=== PATIENT | male | born 1955 | race Caucasian/White ===

== ENCOUNTER → 2022-07-25 | Outpatient (CLI) | payer MEDICARE ==
--- NOTE | 2022-07-26 10:18 | NM ---
EXAMINATION TYPE: NM stress cardiolite complete DATE OF EXAM: 07/25/2022 COMPARISON: NONE HISTORY: 66-year-old male Z01.810, preprocedural exam. Patient with history of hypertension, diabetes , high cholesterol. 20 pack-year history of smoking, quit 20 years ago. TECHNIQUE: After the intravenous administration of 9.8 mCi Tc 99m Sestamibi - Rest images obtained 7 5 minutes post injection. The patient exercised using a ANAI protocol and 1 minute prior to peak e xercise was injected with 25.8 mCi Tc 99m Sestamibi - Stress images obtained 20 minutes post injectio n. FINDINGS: Targeted heart rate (130 BPM) was achieved during performance of the study. 141 BPM was achieved tota l exercise time 7 minutes. Review of stress and rest SPECT images demonstrates fixed defect along the inferior wall that is more pronounced on rest suggesting prominent diaphragmatic attenuation artifac t. No distinct perfusion abnormality. Gated analysis shows normal wall motion with an estimated left ventricular ejection fraction of 70 %. TID is calculated at 0.87, within normal limits. IMPRESSION: 1. Large area of fixed defect along the inferior wall. As the defect is larger on rest, we favor prom inent diaphragmatic attenuation artifact rather than old infarct. Clinically correlate. 2. No discrete reversibility is identified.
--- NOTE | 2022-07-26 12:52 | CA ---
Exercise Stress Test Report Name: Negrito Bah Exam Date: 07/25/2022 09:27 Exam Location: [facility] Stress Ht (in): 71 Wt (lb): 238 BSA: 2.27 Ordering Phys: Juan Chacon MD Referring Phys: Ines, Technologist: Bhanu Villeda Age: 66 Gender: M : 1955 Procedure CPT: Indications: Z01.810 preprocedural exam ICD-10 Codes: Patient History: Hypertension and pre op Medications: Meds past 24 hrs: Pretest Chest Pain: STRESS TEST Mitul Protocol Exercise Duration (min:sec): 07:[address] Depressions (mm): Angina Score: Angulo Score: Resting HR (bpm): 75 Peak HR (bpm): 141 Resting BP (mmHg): 132 / 85 Peak BP (mmHg): 174 / 72 MPHR: 153 Target HR: 130 % MPHR: 92 METS: 8.6 Total Dose: Peak Dose: Atropine: Double Product: 82334 BP Response: Stress Termination: Reached target heart rate Stress Symptoms: No chest pain or symptoms Stress Summary: ECG ANALYSIS Resting ECG: Stress ECG: CONCLUSIONS Patient underwent exercise stress EKG with a Mitul protocol treadmill stress test. Patient exercised into Stage 2 for a total of 7 minutes reaching a total of 8.6 METS. Patient's maximum heart rate was 141 which represented 92 % age-predicted maximum heart rate. Stress EKG findings: At baseline patient's EKG showed normal sinus rhythm, normal axis, no significant ST or T wave abnormalities. At peak exercise, EKG showed no significant change from baseline. Conclusions: 1. Normal EKG response to exercise without evidence of inducible ischemia. 2. Fair exercise capacity. Dr. Sunday Werner DO (Electronically Signed) Final Date: 26 July 2022 12:51
== END | disposition home or self-care (01) ==
LOC: RADNMMAIN 07:55
PROVIDERS: ATTEND Internal Medicine
DX: Z01.810 Encounter for preprocedural cardiovascular examination (principal); I10 Essential (primary) hypertension; E11.9 Type 2 diabetes mellitus without complications; Z87.891 Personal history of nicotine dependence
CPT/HCPCS: 93017; 78452; A9500

== ENCOUNTER → 2022-08-19 | Outpatient (CLI) | payer MEDICARE ==
[2022-08-19 15:29] LABS: Basophils # (A) 0.06 X 10*3/uL (0.00-0.10); Basophils % (A) 0.9 %; Eosinophils # (A) 0.23 X 10*3/uL (0.04-0.35); Eosinophils % (A) 3.5 %; HCT 50.3 % (39.6-50.0); HGB 16.6 g/dL (13.0-17.0); Immature Grans, Automated 0.3 %; Lymphocytes # (A) 2.12 X 10*3/uL (0.90-5.00); Lymphocytes % (A) 32.7 %; MCH 29.6 pg (27.0-32.0); MCV 89.7 fL (80.0-97.0); Mean Platelet Volume 10.9 fL (9.5-12.2); Monocytes # (A) 0.46 X 10*3/uL (0.20-1.00); Monocytes % (A) 7.1 %; NRBC Per 100 WBC 0 /100 WBCS (0.0-0.0); Neutrophils % (A) 55.5 %; Platelet Count 215 X 10*3/uL (140-440); RBC 5.61 X 10*6/uL (4.40-5.60); RDW 13.2 % (11.5-14.5); WBC 6.49 X 10*3/uL (4.50-10.00)
[2022-08-19 16:28] LABS: INR 0.96 (0.90-1.11); Prothrombin Time 10.6 sec (9.9-11.9)
[2022-08-19 16:51] LABS: African American GFR (CKD) 102.3 (60.0-200.0); Anion Gap 10.7 mmol/L (10.00-18.00); BUN/Creat Ratio 15.64 Ratio (12.00-20.00); Calcium 9.6 mg/dL (8.7-10.3); Non-African American GFR(CKD) 88.3 (60.0-200.0); Potassium 4.6 mmol/L (3.5-5.5)
== END | disposition home or self-care (01) ==
LOC: LABPAT 08:08
PROVIDERS: ATTEND Orthopaedic Surgery
DX: Z01.812 Encounter for preprocedural laboratory examination (principal); Z22.322 Carrier or suspected carrier of Methicillin resistant Staphylococcus aureus; M17.12 Unilateral primary osteoarthritis, left knee
CPT/HCPCS: 36415; 80048; 85025; 85610; 87070

== ENCOUNTER 2022-09-02 08:14 | Day surgery (SDC) | payer MEDICARE ==
[2022-08-27 15:56] VITALS: BMI 32.8
--- NOTE | 2022-09-01 23:32 | HP ---
HISTORY AND PHYSICAL DATE OF SURGERY: 09/02/2022. HISTORY OF PRESENT ILLNESS: Negrito Bah is a 66-year-old patient seen with symptomatic left knee osteoarthritis. We discussed options for treatment. He elected to proceed with left total knee arthroplasty. Consent obtained. Medical clearance was provided by Dr. Chacon. PAST MEDICAL HISTORY: Hyperlipidemia, nsa-euqysrr-[id number] diabetes. PAST SURGICAL HISTORY: Umbilical herniorrhaphy. DAILY MEDICATIONS: 1. Rosuvastatin. 2. Metformin. 3. Glimepiride. 4. Aspirin. ALLERGIES: None. SOCIAL HISTORY: Denies tobacco use. PHYSICAL EVALUATION OF THE LEFT KNEE: His range of motion is -2/3-120. Mild effusion. Tenderness medial joint line. Crepitus, medial patellofemoral compartments with range of motion. Some pain with patellofemoral compression. Ligaments stable. Hip rotation without pain. Distal neurovascular exam is intact. RADIOGRAPHS: Left knee reveal severe osteoarthritic changes. IMPRESSION: 1. Left knee osteoarthritis. 2. Hypertension. 3. [id number] diabetes. PLAN: Left total knee arthroplasty. MMODL / IJN: [id number] /
[~2022-09-02 08:14] MED LIST: ACETAMINOPHEN TAB 500 MG TAB PO PRN; DEXAMETHASONE SOD PHOSPHATE 4 MG/ML 1 ML VIAL IV ONE; HYDROmorphone 0.5 MG/0.5 ML SYRINGE IVP PRN; LIDOCAINE 1% (10MG/ML) FOR IV START INTRADERMA PRN; MELOXICAM 7.5 MG TAB PO PRN; MIDAZOLAM 2 MG/2 ML VIAL IV PRN; ONDANSETRON 4 MG/2 ML VIAL IVP ONE; TRANEXAMIC ACID IN NACL,ISO-OS 1,000 MG in SALINE 1 100ML.BAG IVPB PRN
[2022-09-02 08:53] LABS: Glucose,Whole Blood 150 mg/dL (70-110)
[2022-09-02] MEDS: LACTATED RINGERS 1,000 ML IV SCH ×3 (09:02→15:55)
[2022-09-02] MEDS ORDERED: MIDAZOLAM 2 MG/2 ML VIAL IVP ONE (09:19)
[2022-09-02 09:59] LABS: Glucose,Whole Blood 145 mg/dL (70-110)
[2022-09-02] MEDS ORDERED: SODIUM CHLORIDE 0.9% (PF) 10 ML VIAL ONE (10:00)
[2022-09-02] MEDS ORDERED: KETAMINE 10 MG/ML 20 ML VIAL ONE (10:00)
[2022-09-02] MEDS ORDERED: ROPIVACAINE 5 MG/ML 30 ML VIAL ONE (10:00)
[2022-09-02] MEDS ORDERED: DEXAMETHASONE SOD PHOSPHATE 4 MG/ML 1 ML VIAL ONE (10:00)
[2022-09-02] MEDS ORDERED: PROPOFOL 10 MG/ML 20 ML VIAL IV ONE (10:00)
[2022-09-02] MEDS ORDERED: TRANEXAMIC ACID IN NACL,ISO-OS 1,000 MG/100 ML BAG ONE (10:00)
[2022-09-02] MEDS ORDERED: PHENYLEPHRINE-0.9% NACL SYG 1,000 MCG/10 ML SYRINGE ONE (10:00)
[2022-09-02] MEDS ORDERED: MIDAZOLAM 2 MG/2 ML VIAL ONE (10:00)
[2022-09-02] MEDS ORDERED: fentaNYL (PF) 50 MCG/ML 2 ML AMP ONE (10:00)
--- NOTE | 2022-09-02 10:04 | P.ANPRN ---
Procedure Note - Anesthesia - Nerve Block Performed Left Adductor Canal Infusion Time Out Performed: Yes Date of Procedure: 09/02/22 Procedure Start Time: : Procedure Stop Time: : Location of Patient: PreOp Indication: Requested by Surgeon Specifically requested for management of pain by DrBradley: Marcos Olivares Sedation Type: Sedate with meaningful contact maintained Preparation: Sterile Prep, Sterile Dressing Position: Supine Catheter: Indwelling Needle Types: Pajunk Needle Gauge: 18 Ultrasound used to visualize needle placement: Yes Ultrasound used to observe medication spread: Yes Injectate: 0.5% Ropivacaine (see comment for volume) (15 ml +10 ml NS PF) Blood Aspirated: No Pain Paresthesia on Injection Noted: No Resistance on Injection: Normal Image Stored and Saved: Yes Events: Uneventful and Well Tolerated
[2022-09-02] MEDS ORDERED: ROPIVACAINE 0.2%-NS ON-Q PUMP 1,090 MG, EMPTY PAIN BALL 1 EACH MISCELLANE PRN (10:05)
--- NOTE | 2022-09-02 10:05 | P.ANPRN ---
Procedure Note - Anesthesia - Nerve Block Performed Left iPack Single Time Out Performed: Yes Date of Procedure: 09/02/22 Procedure Start Time: : Procedure Stop Time: :35 Location of Patient: PreOp Indication: Requested by Surgeon Specifically requested for management of pain by DrBradley: Marcos Olivares Sedation Type: Sedate with meaningful contact maintained Preparation: Sterile Prep Position: Right Lateral Needle Types: Pajunk Needle Gauge: 21 Ultrasound used to visualize needle placement: Yes Ultrasound used to observe medication spread: Yes Injectate: 0.5% Ropivacaine (see comment for volume) (15 ml +10 ml NS PF +4 mg Dexamethasone) Blood Aspirated: No Pain Paresthesia on Injection Noted: No Resistance on Injection: Normal Image Stored and Saved: Yes Events: Uneventful and Well Tolerated
[2022-09-02] MEDS ORDERED: ceFAZolin 1,000 MG in SODIUM CHLORIDE 0.9% 1,000 ML IRRIGATION ONE (10:33)
[2022-09-02] MEDS ORDERED: LACTATED RINGERS 1,000 ML IV ONE (11:33)
[2022-09-02] MEDS ORDERED: NALOXONE 0.4 MG/ML 1 ML VIAL IV PRN (11:52)
[2022-09-02] MEDS ORDERED: HYDROmorphone 0.5 MG/0.5 ML SYRINGE IVP PRN ×3 (11:52)
[2022-09-02] MEDS ORDERED: ONDANSETRON 4 MG/2 ML VIAL IVP PRN (11:52)
[2022-09-02] MEDS ORDERED: HYDROcodone/APAP 7.5-325MG 1 EACH TAB PO PRN (11:52)
--- NOTE | 2022-09-02 11:52 | P.OP ---
Date of Procedure: 09/02/22 Preoperative Diagnosis: Left knee osteoarthritis Postoperative Diagnosis: Left knee osteoarthritis Procedure(s) Performed: Left total knee arthroplasty Implants: 1. Depuy attune size 7 left cruciate retaining cemented femur 2. Depuy attune size 7 fixed bearing cemented tibial baseplate 3. Ayden attune size 7 fixed bearing cruciate retaining 12 mm polyethylene tibial insert 4. Ayden attune 38 mm all polyethylene cemented patella Anesthesia: regional (Adductor canal catheter, Ipack block), spinal Surgeon: Marcos Olivares Milk Hauler #1: Dom Manning Estimated Blood Loss (ml): 40 Pathology: other (Bone) Condition: stable Disposition: PACU Indications for Procedure: 66-year-old patient seen with symptomatic left knee osteoarthritis. After treatment options were discussed, he elected to proceed with total knee arthropl asty. Operative Findings: See description of procedure Description of Procedure: Patient was taken to the operative suite after having an adductor canal catheter placed by the department of anesthesia. Patient underwent a spinal anesthetic by the department of anesthesia. Patient was given preoperative IV intake antibiotics and TXA. A well-padded tourniquet was placed about the left lower extremity. The lower extremity was then prepped and draped in the normal sterile orthopedic fashion. The extremity was elevated, a tourniquet was insuf flated to 300. A standard anterior incision was made sharply through skin. Dissection was taken down through the subcutaneous soft tissues down to the extensor mechanism. A medial arthrotomy was performed, patella was everted and knee was flexed. There was advanced osteoarthritis noted. I introduced my distal intramedullary femoral drill. I then introduced the distal femoral cutting jig. Dom SALINAS secured the cutting jig with 2 pins. I held retractors in position while Dom SALINAS performed the distal femoral resection through the guide area we now removed her distal femoral cutting guide. We now placed our 4-in-1 femoral cutting block and positioned and it was secured with 2 pins by Dom SALINAS while I held the block in position. The distal femoral finishing was now completed. A proximal tibial cutting guide was positioned. I held the guide in the appropriate position with both hands while Dom SALINAS inserted stabilizing pins into the guide. Proximal tibial cut was made. We now placed a trial femoral component into position, along with an appropriate size tibial tray and insert. We now took the knee through range of motion and had full extension good flexion and good overall soft tissue balance noted. The patella was everted and stabilized with 2 towel clips held by Dom SALINAS while I performed a flush with patellar quad tendon utilizing a fresh sawblade. We templated the patella, appropriate drill holes were made. An appropriate trial patella was positioned, knee was taken through full range of motion with the patella tracking very nicely. The trial patella was removed. Drill holes were made through the femoral component. All trial components were removed after marking off the appropriate rotation of the tibia. Retractors were now positioned along the proximal tibia. An appropriate keel punch was made with the appropriate size tibial guide by myself on Dom SALINAS assisted by holding retractors. At this point appropriate size implants were chosen and opened. The joint was irrigated copiously with pulse lavage mechanical irrigation. The posterior capsule was infiltrated with local analgesic. The wound was irrigated with pulse lavage mechanical irrigation. We mixed antibiotic methylmethacrylate. We placed the knee into flexion. We placed multiple retractors assisted by Dom SALINAS to expose the proximal tibia. Once the methyl methacrylate was ready, the tibial component was cemented into place removing any excess methylmethacrylate form by both myself and Dom SALINAS. The femoral component was cemented into place removing the removing any excess methylmethacrylate performed by both myself and Dom SALINAS. We then inserted the appropriate size polyethylene tibial insert. We made sure that it was locked into position. We took the knee into full extension, and then back in a flexion making sure we had removed any excess methylmethacrylate. The patellar component was then cemented down and secured with clamp. Excess methylmethacrylate removed. We kept the knee in full extension, patellar clamp in position until methylmethacrylate had hardened. Once it had hardened the patellar clamp was removed. The knee was taken through full range of motion. The patella tracked nicely. There was good soft tissue balancing. The tourniquet was now released. Additional hemostasis was achieved via electrocautery. A second gram of TXA was given. The wound again was irrigated with pulse lavage mechanical irrigation. The extensor mechanism was repaired with Ethibond suture. We checked the repair with range of motion and it was stable. The subcutaneous soft tissues were repaired with Vicryl in layers. The skin was approximated with pernio/Dermabond. Sterile dressings were applied followed by loose web roll and Les bandage. The patient was transferred to a bed, and taken to recovery in stable and satisfactory condition. Dom SALINAS assisted with this complex procedure.
--- NOTE | 2022-09-02 14:34 | XR ---
EXAMINATION TYPE: XR knee limited LT DATE OF EXAM: 09/02/2022 2:05 PM INDICATION: Patient age:Male; 66 years old; Reason for study: Evaluation for Postop abnormality and alignment; COMPARISON: None. TECHNIQUE: The Left knee(s) was examined in Frontal, lateral and oblique projections. FINDINGS: Status post left total knee arthroplasty changes with hardware in appropriate alignment a nd intact. No evidence of fracture. Subcutaneous lucencies and lucencies within the joint consistent with surgical changes. IMPRESSION: Status post total knee arthroplasty changes with hardware intact and appropriate alignment. No fractu res identified.
[2022-09-02 17:06] VITALS: RESP 18
[2022-09-02] MEDS ORDERED: LORATADINE 10 MG TAB PO SCH (19:00)
[2022-09-02 19:16] LABS: Glucose,Whole Blood 244 mg/dL (70-110)
[2022-09-02] MEDS ORDERED: SENNOSIDES-DOCUSATE SODIUM 1 EACH TAB PO SCH (21:00)
[2022-09-02] MEDS ORDERED: ATORVASTATIN 20 MG TAB PO SCH (21:00)
[2022-09-02] MEDS: metFORMIN 500 MG TAB PO SCH (21:52)
[2022-09-02] MEDS: ENOXAPARIN 30 MG/0.3 ML SYRINGE SQ SCH (21:52)
[2022-09-03] MEDS: LACTATED RINGERS 1,000 ML IV SCH ×3 (01:10→09:47)
[2022-09-03] MEDS: HYDROcodone/APAP 5-325MG 1 EACH TAB PO PRN ×2 (05:32→12:09)
[2022-09-03 06:25] LABS: Glucose,Whole Blood 160 mg/dL (70-110)
[2022-09-03] MEDS: metFORMIN 500 MG TAB PO SCH (07:22)
[2022-09-03] MEDS: ENOXAPARIN 30 MG/0.3 ML SYRINGE SQ SCH (07:23)
[2022-09-03] MEDS ORDERED: DAPAGLIFLOZIN PROPANEDIOL 10 MG TABLET PO SCH (07:30)
[2022-09-03] MEDS ORDERED: PANTOPRAZOLE 40 MG TABLET PO SCH (07:30)
[2022-09-03] MEDS ORDERED: GLIMEPIRIDE 4 MG TAB PO SCH (07:30)
[2022-09-03 07:32] VITALS: BP 137/79; PULSE 90; TEMP 98.4
--- NOTE | 2022-09-03 07:55 | P.PN ---
Progress Note - Text Progress Note Date: 09/03/22 Postoperative day # 1 status post total knee arthroplasty, and adductor canal catheter placed for postoperative analgesia, currently at ropivacaine 0.2% 8 mL per hour and continuous infusion, visual analogue scale is 3-4/10, patient using oral pain medication for breakthrough pain. Assessment and plan= Acute postoperative pain, adductor canal catheter for pain control, pain is well controlled we'll continue the same management. note= patient was seen at 06:55
[2022-09-03] MEDS ORDERED: MULTIVITAMINS, THERA 1 EACH TAB PO SCH ×2 (09:00→12:00)
[2022-09-03] MEDS ORDERED: LOSARTAN 50 MG TAB PO SCH (09:00)
[2022-09-03] MEDS ORDERED: ASPIRIN 81 MG PO SCH (09:00)
[2022-09-03 09:43] LABS: HCT 47.2 % (39.6-50.0); HGB 15.7 g/dL (13.0-17.0); MCH 29.2 pg (27.0-32.0); MCHC 33.3 g/dL (32.0-37.0); MCV 87.9 fL (80.0-97.0); Mean Platelet Volume 11.1 fL (9.5-12.2); NRBC Per 100 WBC 0 /100 WBCS (0.0-0.0); Platelet Count 253 X 10*3/uL (140-440); RBC 5.37 X 10*6/uL (4.40-5.60); RDW 13.3 % (11.5-14.5); WBC 14.08 X 10*3/uL (4.50-10.00)
--- NOTE | 2022-09-03 11:14 | P.PN ---
Subjective Progress Note Date: 09/03/22 Principal diagnosis: Status post left total knee arthroplasty Patient evaluated at bedside, he is resting his hospital chair. He's been ambulating very well with use of his walker. He was able to work with physical therapy this morning with no difficulty. He has been urinating, there initially was difficult with this earlier yesterday but he is having no issues now. Denies headaches, lightheadedness, shortness of breath, chest pain. Objective - Vital Signs Vital signs: Vital Signs Temp 98.4 F 09/03/22 07:31 Pulse 90 09/03/22 07:31 Resp 18 09/03/22 07:31 BP 137/79 09/03/22 07:31 Pulse Ox 96 09/03/22 07:31 FiO2 Intake & Output 09/02/22 09/03/22 09/03/22 18:59 06:59 18:59 Intake Total 2050 1150 Output Total 40 2850 Balance 2010 -1699 Weight 107.4 kg Intake: IV 2050 Intake, IV Titration 1150 Amount Lactated Ringers 1,000 ml 1100 @ 100 mls/hr IV .Q10H CHAN Rx#:[id number] ceFAZolin 2 gm In Sodium 50 Chloride 0.9% 50 ml @ 100 mls/hr IVPB Q8H CHAN Rx#: [id number] Output: Urine 2850 Estimated Blood Loss 40 Other: Voiding Method Urinal # Voids 1 - Exam Left lower extremity: Incision is clean, dry, and intact. The exofin fusion tape is in good condition. There is minimal soft tissue swelling and ecchymosis surrounding the medial and lateral aspects of the incision. Calf is soft, no tenderness with palpation. Plantar flexion, dorsiflexion, EHL, FHL are intact. Sensory exam to light touch throughout the extremity is intact, dorsal pedis pulses 2+. - Labs CBC & Chem 7: 09/03/22 05:24 Labs: Abnormal Lab Results - Last 24 Hours (Table) 09/02/22 09/03/22 09/03/22 Range/Units 19:14 05:24 06:23 WBC 14.08 H (4.50-10.00) X 10*3/uL POC Glucose (mg/dL) 244 H 160 H (70-110) mg/dL Assessment and Plan Assessment: Postoperative day #1 status post left total knee arthroplasty Plan: Pain control, plan for discharge home on [place] 5 mg/325 mg DVT prophylaxis, aspirin 81 mg twice a day Wound care instructions discussed, this concluded icing and elevating along with showering Encourage incentive spirometer PT/OT at home once discharged Medical recommendations Discharge planning: Stable for discharge Time with Patient: Less than 30
--- NOTE | 2022-09-03 11:19 | P.DS ---
Providers Date of admission: 09/02/2022 Expected date of discharge: 09/03/22 Attending physician: Marcos Olivares Consults: 09/02/22 11:52 Consult Physician Routine Consulting Provider: Juan Chacon Consult Reason/Comments: Medical management Do you want consulting provider notified?: Yes Primary care physician: Juan Chacon Hospital Course: Date of admission: 09/02/2022 Date of discharge: 09/03/2022 Admission diagnosis: Status post left total knee arthroplasty Discharge diagnosis: Same Attending physician: Dr. Olivares Surgical procedures: Left total knee arthroplasty Brief history: Patient is a 66 male with a history of with progressive primary left knee osteoarthritis. At this point patient has failed conservative treatment measures and has opted to proceed with a elective left total knee arthroplasty. Hospital course: Details of patient's surgery can be found in operative report. Patient tolerated the procedure well and was subsequently transported to [facility] floor. Patient's orthopeidc and medical care was provided daily. Patient had daily laboratory tests performed for evaluation of overall blood counts. Patient had daily physical therapy to include strengthening range of motion as well as education with walker ambulation. Patient was treated with Lovenox for their postoperative DVT prophylaxis during their inpatient stay. Patient was noted to have a relatively uneventful postoperative course. Patient reported satisfactory pain control with oral pain medications by postoperative day 0. Patient showed satisfactory progress with physical therapy. Patient moved steadily through the program and had no difficulty meeting the goals by postoperative day 1. Given patient's otherwise satisfactory course and having met physical therapy goals, plan is to discharge patient home on postoperative day 1. Discharge condition/disposition: Patient will be discharged home in stable condition. Discharge medications: Instructions are given on resumption of patient's normal daily medications per primary care recommendation, in addition patient will be prescribed [place] 5 mg/325 mg. Discharge instructions: 1. Wound care and infection precautions, keep incision dry and covered while showering, no lotions, creams, moisturizers. No soaking, tubs, pools, hottubs. Do not scrub over the incision. 2. Weight-bear as tolerated with walker / cane until follow-up. 3. Ice and elevate when necessary. Do not exceed 20 minutes per hour with ice pack. 4. Utilize compression sleeve until seen at first follow up appointment. 5. Visiting nursing care. 6. Home physical therapy including home CPM. 7. Pain meds and anticoagulants per prescription. 8. Pain medication has potential to cause constipation. Increase oral fluid and fiber intake. Contact primary care provider if you have not had a bowel movement within 48 hours after discharge 9. No anti-inflammatory medication until discussed at first post operative visit, this including Motrin, Aleve, Mobic, Diclofenac 10. Follow up in office at 2 weeks postop with Desmond Myers PA-C/Dom Carrillo 11. Follow up with your primary care doctor 7-10 days after discharge. 12. Contact [facility] with any questions, . Procedures: Left total knee arthroplasty Patient Condition at Discharge: Good Plan - Discharge Summary Discharge Rx Participant: No New Discharge Prescriptions: New Aspirin [Adult Low Dose Aspirin EC] 81 mg PO BID #60 tab HYDROcodone/APAP 5-325MG [[place] 5-325] 1 tab PO Q4HR PRN #42 tab PRN Reason: Pain No Action Rosuvastatin [Crestor] 10 mg PO HS Empagliflozin [Jardiance] 25 mg PO AC-BRKFST Cetirizine HCl [Zyrtec] 10 mg PO 1900 Aspirin 81 mg PO DAILY metFORMIN HCL [Glucophage] 1,000 mg PO BID Losartan [Cozaar] 50 mg PO DAILY Lansoprazole [Prevacid] 30 mg PO DAILY Glimepiride [Amaryl] 4 mg PO AC-BRKFST Multivitamins, Thera [Multivitamin (formulary)] 1 tab PO DAILY Discharge Medication List Aspirin 81 mg PO DAILY 08/27/22 [History] Cetirizine HCl [Zyrtec] 10 mg PO 1900 08/27/22 [History] Empagliflozin [Jardiance] 25 mg PO AC-BRKFST 08/27/22 [History] Glimepiride [Amaryl] 4 mg PO AC-BRKFST 08/27/22 [History] Lansoprazole [Prevacid] 30 mg PO DAILY 08/27/22 [History] Losartan [Cozaar] 50 mg PO DAILY 08/27/22 [History] Multivitamins, Thera [Multivitamin (formulary)] 1 tab PO DAILY 08/27/22 [History] Rosuvastatin [Crestor] 10 mg PO HS 08/27/22 [History] metFORMIN HCL [Glucophage] 1,000 mg PO BID 08/27/22 [History] Aspirin [Adult Low Dose Aspirin EC] 81 mg PO BID #60 tab 09/03/22 [Rx] HYDROcodone/APAP 5-325MG [[place] 5-325] 1 tab PO Q4HR PRN #42 tab 09/03/22 [Rx] Follow up Appointment(s)/Referral(s): Juan Chacon MD [Primary Care Provider] - 1 Week [facility],Equipment [NON-STAFF] - As Needed (Call [facility] once home to arrange delivery of the Continuous Passive Motion (CPM) machine. ) [facility], [NON-STAFF] - 1-2 Days ([facility] will call you to schedule your in home nursing and physical therapy visits. ) Kvng Myers PAC [PHYSICIAN LOAD OUT PERSON] - 09/20/22 11:20 am Patient Instructions/Handouts: Knee Replacement (DC) Activity/Diet/Wound Care/Special Instructions: Orthopedic Discharge Instructions: 1. Wound care and infection precautions, keep incision dry and covered while showering, no lotions, creams, moisturizers. No soaking, pools, hot tubs. Do not scrub over incision. 2. Weight-bear as tolerated with walker / cane until follow-up. 3. Ice and elevate when necessary. Do not exceed 20 minutes per hour with ice pack. 4. Utilize compression sleeve until seen at first follow up appointment. 5. Pain meds and anticoagulants per prescription. 6. Pain medication has potential to cause constipation. Increase oral fluid and fiber intake. Contact primary care provider if you have not had a bowel movement within 48 hours after discharge. 7. No anti-inflammatory medication until discussed at first post operative visit, this including Motrin, Aleve, Mobic, Diclofenac. 8. Follow up in office at 2 weeks postop with Desmond Myers PA-C / Dom Manning PA-C 9. Follow up with your primary care doctor 7-10 days after discharge. 10. Contact [facility] with any questions, . Keep incision clean, dry, intact. While showering, cover silver foam dressing was Saran wrap. Silver foam dressing may removed on 09/09/2022. Once dressing is removed may shower directly over incision. Do not soak incision in pool/hot tub etc. Discharge Disposition: HOME WITH HOME HEALTH SERVICES
[2022-09-03 11:23] LABS: Glucose,Whole Blood 160 mg/dL (70-110)
[2022-09-03 11:32] LABS: Basophils # (A) 0.03 X 10*3/uL (0.00-0.10); Basophils % (A) 0.2 %; Eosinophils # (A) 0 X 10*3/uL (0.04-0.35); Eosinophils % (A) 0 %; Immature Grans, Automated 0.3 %; Lymphocytes # (A) 1.59 X 10*3/uL (0.90-5.00); Lymphocytes % (A) 11.3 %; Monocytes # (A) 1.63 X 10*3/uL (0.20-1.00); Monocytes % (A) 11.6 %; Neutrophils # (A) 10.79 X 10*3/uL (1.80-7.70); Neutrophils % (A) 76.6 %
== END 2022-09-03 13:00 | disposition home health service (06) ==
LOC: OR 08:14 → 4SSUR 15:50 → OR 09-03 13:00
PROVIDERS: ATTEND Orthopaedic Surgery
DX: M17.12 Unilateral primary osteoarthritis, left knee (principal); E78.5 Hyperlipidemia, unspecified; E11.9 Type 2 diabetes mellitus without complications; Z79.84 Long term (current) use of oral hypoglycemic drugs; G89.18 Other acute postprocedural pain; Z79.82 Long term (current) use of aspirin; Z79.899 Other long term (current) drug therapy; Z98.890 Other specified postprocedural states
CPT/HCPCS: 27447; 97161; 64999; 64448; 76942; 85025; 88300; 73560; C1776; C1713 ×2; C1751; J2250; J1100; J0690 ×3; J2405; J1650 ×2; J2795

== ENCOUNTER → 2022-09-10 | Outpatient (CLI) | payer MEDICARE ==
--- NOTE | 2022-09-10 10:57 | US ---
EXAMINATION TYPE: US venous doppler duplex LE LT DATE OF EXAM: 09/10/2022 10:39 AM COMPARISON: NONE CLINICAL HISTORY: M79.605 LT LEG PAIN. left total knee 1 week ago, bruising and swelling, no h/o dvt SIDE PERFORMED: Left TECHNIQUE: The lower extremity deep venous system is examined utilizing real time linear array sonog layla with graded compression, doppler sonography and color-flow sonography. VESSELS IMAGED: Common Femoral Vein Deep Femoral Vein Greater Saphenous Vein * Femoral Vein Popliteal Vein Small Saphenous Vein * Proximal Calf Veins (* superficial vessels) Left Leg: Negative for DVT Grayscale, color doppler, spectral doppler imaging performed of the deep veins of the left lower extr emity. There is normal flow, compressibility, vascular waveforms. IMPRESSION: No ultrasound evidence for acute DVT in the left lower extremity.
== END | disposition home or self-care (01) ==
LOC: RADUSWWP 10:18
PROVIDERS: ATTEND Internal Medicine
DX: M79.605 Pain in left leg (principal)

== ENCOUNTER → 2023-03-11 | Outpatient (CLI) | payer MEDICARE ==
--- NOTE | 2023-03-11 07:39 | MR ---
EXAMINATION TYPE: MR knee RT wo con DATE OF EXAM: 03/11/2023 COMPARISON: Right knee x-ray February 15, 2023 HISTORY: Right knee pain, twisting injury 4 weeks ago. TECHNIQUE: Multiplanar, multisequence images of the knee is performed without IV contrast. FINDINGS: MEDIAL MENISCUS: Medial extrusion of medial meniscus on coronal images with marked increase signal Tr uncated appearance medial meniscus with horizontal increased signal through the central body and post erior horn extending to articular surface. LATERAL MENISCUS: Anterior and posterior horns are intact without tear. CRUCIATE LIGAMENTS: The anterior and posterior cruciate ligaments are intact and unremarkable. COLLATERAL LIGAMENTS: The medial collateral ligament and lateral collateral ligament complex are inta ct. Mild fluid signal surrounds the medial collateral ligament. EXTENSOR MECHANISM: Visualized quadriceps and patellar tendons are intact. EFFUSION: Large size suprapatellar joint effusion. POPLITEAL CYST: No popliteal/pradhan cyst. TRICOMPARTMENT SPACES: Mild to moderate narrowing with mild spurring medial tibial femoral compartmen t. Mild narrowing and mild to moderate spurring lateral tibiofemoral compartment. Mild to moderate na rrowing patellofemoral compartment. CARTILAGE: Fissuring and cartilaginous loss medial tibiofemoral compartment. No significant chondroma lacia patella. BONE MARROW SIGNAL: No focal abnormal marrow signal is appreciated. OTHER: No additional significant abnormality is appreciated. IMPRESSION: 1. There is emaciated full thickness tear medial meniscus involving the posterior horn and central john dy. 2. There is large suprapatellar joint effusion. 2. Mild to moderate tricompartment degenerative changes as detailed above. 4. Mild MCL sprain injury.
== END | disposition home or self-care (01) ==
LOC: RADMRIMAIN 05:54
PROVIDERS: ATTEND Orthopaedic Surgery
DX: S83.241A Other tear of medial meniscus, current injury, right knee, initial encounter (principal); S83.411A Sprain of medial collateral ligament of right knee, initial encounter; M25.461 Effusion, right knee; M17.11 Unilateral primary osteoarthritis, right knee

== ENCOUNTER 2023-04-17 07:55 | Day surgery (SDC) | payer MEDICARE ==
[2023-04-09 15:13] VITALS: BMI 31.4
--- NOTE | 2023-04-16 20:15 | HP ---
HISTORY AND PHYSICAL DATE OF SURGERY: 04/17/2023. HISTORY OF PRESENT ILLNESS: Negrito Bah is a 67-year-old gentleman seen with progressive right knee pain. We discussed options for treatment. He elected to proceed with right knee arthroscopy. Consent was obtained. PAST MEDICAL HISTORY: Thm-gidtabk-cxfnaciby diabetes, hyperlipidemia. PAST SURGICAL HISTORY: Umbilical herniorrhaphy. DAILY MEDICATIONS: 1. Aspirin. 2. Loperamide. 3. Losartan. 4. Metformin. 5. Vitamins. ALLERGIES: None. SOCIAL HISTORY: Denies tobacco use. PHYSICAL EVALUATION OF THE RIGHT KNEE: His range of motion is -2/3 to 120 degrees. Mild effusion. Tenderness, medial joint line. Positive medial Kalyani's. +1 MCL. Good endpoint. Painless rotation of the hip. Distal neurovascular exam is intact. RADIOGRAPHS: Radiographs of the right knee revealed yecx-qc-qyrfvgow osteoarthritic changes. MRI of right knee revealed a large medial meniscal tear. Large effusion. Osteoarthritic changes. IMPRESSION: 1. Internal derangement of right knee with medial meniscal tear. 2. Hypertension. 3. Hyperlipidemia. 4. Tzx-nkbsqhn-tvdofwhuq diabetes. PLAN: Right knee arthroscopy with partial medial meniscectomy and debridement. MMODL / IJN: [id number] /
[2023-04-17] MEDS ORDERED: LACTATED RINGERS 1,000 ML IV SCH (08:08)
[2023-04-17] MEDS ORDERED: fentaNYL (PF) 50 MCG/ML 2 ML AMP IV PRN (08:08)
[2023-04-17] MEDS ORDERED: droPERidol 5 MG/2 ML VIAL IVP ONE (08:08)
[2023-04-17] MEDS ORDERED: DEXAMETHASONE SOD PHOSPHATE 4 MG/ML 1 ML VIAL IV ONE (08:08)
[2023-04-17] MEDS ORDERED: LIDOCAINE 1% (10MG/ML) FOR IV START INTRADERMA PRN (08:08)
[2023-04-17] MEDS ORDERED: ONDANSETRON 4 MG/2 ML VIAL IVP ONE (08:08)
[2023-04-17 08:36] LABS: Glucose,Whole Blood 145 mg/dL (70-110)
[2023-04-17] MEDS ORDERED: MIDAZOLAM 2 MG/2 ML VIAL ONE (09:22)
[2023-04-17] MEDS ORDERED: PROPOFOL 10 MG/ML 20 ML VIAL IV ONE (09:22)
[2023-04-17] MEDS ORDERED: fentaNYL (PF) 50 MCG/ML 2 ML AMP ONE (09:22)
[2023-04-17] MEDS ORDERED: KETOROLAC 15 MG/ML 1 ML VIAL ONE (09:22)
[2023-04-17] MEDS ORDERED: BUPIVACAINE (PF) 0.25% 30 ML VIAL SQ ONE ×2 (09:40→09:56)
--- NOTE | 2023-04-17 10:13 | P.OP ---
Date of Procedure: 04/17/23 Preoperative Diagnosis: Internal derangement right knee Postoperative Diagnosis: 1. Tear medial and lateral meniscus right knee 2. Grade 4 chondromalacia medial femoral condyle right knee 3. Reactive synovitis medial, lateral and suprapatellar compartments right knee Procedure(s) Performed: 1. Arthroscopic partial medial and lateral meniscectomy right knee 2. Arthroscopic microfracture medial femoral condyle right knee 3. Arthroscopic partial synovectomy medial, lateral and suprapatellar compartments right knee Anesthesia: NEDAA, local Surgeon: Marcos Olivares Estimated Blood Loss (ml): 8 Pathology: none sent Condition: stable Disposition: PACU Indications for Procedure: 67-year-old gentleman seen with progressive right knee pain. After having treatment options discussed, he elected to proceed with arthroscopy. Operative Findings: See description of procedure Description of Procedure: Patient was taken to the operative suite. Patient underwent a general anesthetic by the department of anesthesia. Patient was given preoperative antibiotics. The right lower extremity was placed in a well-padded arthroscopic leg woo. The right leg was prepped and draped in the normal sterile orthopedic fashion. A lateral parapatellar and suprapatellar incision was made. Trochars were inserted. Arthroscopy was initiated. Suprapatellar pouch revealed diffuse thick reactive synovitis. The patellofemoral joint appeared to articulate congruently. There was grade 2 chondromalacia of the patella without significant osteochondral tears. The scope was guided into the medial gutter. No loose bodies or plica were identified. The scope was then guided into the medial compartment. A medial parapatellar incision was made. Trocar inserted followed by probe. There was a complex tear involving the posterior horn medial meniscus which extended into the midbody area. There were grade 3/4 chondromalacia changes along the medial femoral condyle with some osteochondral flap tears present. There was some thick reactive synovitis anteriorly. I performed a partial medial meniscectomy getting down to stable meniscal tissue. I performed a chondroplasty of the medial femoral condyle getting down to stable osteochondral tissue. I performed a partial synovectomy decompressing the thick reactive synovitis. I noted areas of exposed bone medial femoral condyle measuring just under a centimeter along the weightbearing surface. I introduced a microfracture awl and I performed a microfracture to that area penetrating the bone with resultant leading at the microfracture site. The residual meniscus was found to be stable. The residual osteochondral surface was stable. There was good decompression of the synovitis. Scope and probe were then guided into the intercondylar notch. Cruciates were identified, probed and found to be stable. The scope and probe were then guided into lateral compartment. There was a radial tear mid body lateral meniscus. There was some thick reactive synovitis anteriorly. There was mild grade 1 chondromalacia of the lateral femoral condyle without tears. I performed a partial lateral meniscectomy getting down to stable meniscal tissue. I performed a partial synovectomy decompressing the reactive synovitis. The residual meniscus was found to be stable. There was good decompression of the synovitis. The scope was in guided back into the suprapatellar compartment. I introduced a motorized shaver into the suprapatellar compartment. I debrided Synthes for fragments of meniscus that I encountered. I performed a partial synovectomy. The shaver was now removed. There appeared be good decompression of the reactive synovitis. I now took one more look around the entire knee, no residual debris. Instruments were now removed from the joint. The joint was infiltrated with .25% Marcaine. Steri-Strips were applied to the portal sites. Sterile dressings were applied. The patient was placed into a NATASHA hose. No tourniquet was utilized. The patien t was awakened, transferred to a bed and taken to recovery stable satisfactory condition.
[2023-04-17 10:14] VITALS: RESP 16; TEMP 98
[2023-04-17 11:01] VITALS: BP 124/85; PULSE 86
== END 2023-04-17 11:18 | disposition home or self-care (01) ==
LOC: OR 07:55
PROVIDERS: ATTEND Orthopaedic Surgery
DX: S83.281A Other tear of lateral meniscus, current injury, right knee, initial encounter (principal); S83.241A Other tear of medial meniscus, current injury, right knee, initial encounter; M94.261 Chondromalacia, right knee; M65.861 Other synovitis and tenosynovitis, right lower leg; E11.9 Type 2 diabetes mellitus without complications; M19.90 Unspecified osteoarthritis, unspecified site; E78.5 Hyperlipidemia, unspecified; X58.XXXA Exposure to other specified factors, initial encounter; Z79.899 Other long term (current) drug therapy; Z79.82 Long term (current) use of aspirin; Z79.84 Long term (current) use of oral hypoglycemic drugs
CPT/HCPCS: 29880; 29879; J2250; J1100; J0690; J2405; J3010; J1885; J2704

== ENCOUNTER 2024-03-16 05:53 | Day surgery (SDC) | payer MEDICARE ==
[2024-03-16] MEDS ORDERED: LIDOCAINE 1% (10MG/ML) FOR IV START INTRADERMA PRN (06:12)
[2024-03-16 06:24] VITALS: TEMP 97.2
[2024-03-16] MEDS: LACTATED RINGERS 1,000 ML IV SCH (06:35)
[2024-03-16] MEDS: IV FLUID CONTINUATION 1,000 ML IV ONE (06:36)
[2024-03-16 06:37] LABS: Glucose,Whole Blood 134 mg/dL (70-110)
[2024-03-16] MEDS ORDERED: LIDOCAINE 1% INJ 10MG/ML (20 ML MDV) ONE (07:05)
[2024-03-16] MEDS ORDERED: PROPOFOL 10 MG/ML 20 ML VIAL IV ONE (07:05)
--- NOTE | 2024-03-16 07:31 | P.PCN ---
Date of Procedure: 03/16/24 Procedure(s) Performed: Brief history: Patient is a 68-year-old pleasant white male pleasant scheduled for an elective upper endoscopy as well as colonoscopy as a part of evaluation of GERD and screening for colon cancer Procedure performed: Esophagogastroduodenoscopy with biopsy Colonoscopy with snare polypectomy Preoperative diagnosis: Longstanding history of GERD Screening for colon cancer Anesthesia: MAC Procedure: After informed consent was obtained from the patient was brought into the endoscopy unit and IV sedation was administered by anesthesia under continuous monitoring. Initially upper endoscopy was done. The Olympus GF 160 video endoscope was inserted inserted into the mouth and esophagus intubated without any difficulty and was gradually advanced into the stomach and duodenum and carefully examined. The bulb and second part of the duodenum appeared normal. The scope was then withdrawn into the stomach adequately insufflated with air and upon careful examination the antrum had mild gastritis and biopsies were done from this area. Multiple small gastric polyps noted in the gastric body which were also biopsied. Mucosa of the body, cardia and fundus appeared normal. The scope was then withdrawn into the esophagus. The GE junction was located at 40 cm to the incisors. It appeared regular with no erythema erosions or ulcerations. Rest of the esophagus appeared normal. Patient tolerated the procedure well. At this time the patient continued to remain sedation. Initial digital rectal examination was normal. Olympus CF 160 video colonoscope was then inserted into the rectum and gradually advanced to the cecum without any difficulty. Careful examination was performed as the scope was gradually being withdrawn. The prep was excellent. The cecum, 1.5 cm broad-based polyp that was removed by piecemeal snare polypectomy and complete polypectomy accomplished. In the hepatic flexure there was a 5 mm polyp removed by cold snare polypectomy. Rest of the ascending colon, transverse colon, descending colon, sigmoid colon and rectum appeared normal. In the sigmoid colon there was a 5 mm polyp that was removed by snare polypectomy. Scattered sigmoid diverticulosis seen. Retroflexion was performed in the rectum and no lesions were noted. Patient tolerated the procedure well. Impression: 1. Upper endoscopy revealed mild antral gastritis and small gastric polyps 2. Colonoscopy revealed: a) 1.5 cm broad-based cecal polyp status post piecemeal snare polypectomy and complete polypectomy accomplished b) 5 mm hepatic flexure l polyp status post polypectomy c) 5 millimeters sigmoid colon polyp status post snare polypectomy d) scattered sigmoid diverticulosis Recommendations: Findings of this examination were discussed with the patient as well as his family. He was advised to follow-up with the biopsy results. If the biopsy reveals adenoma he can have repeat colonoscopy in 3 years.
[2024-03-16 07:48] VITALS: BP 110/74; PULSE 78; RESP 15
== END 2024-03-16 08:20 | disposition home or self-care (01) ==
LOC: ORWHC2ENDO 05:53
PROVIDERS: ATTEND Internal Medicine Gastroenterology
DX: Z12.11 Encounter for screening for malignant neoplasm of colon (principal); K31.7 Polyp of stomach and duodenum; D12.0 Benign neoplasm of cecum; D12.3 Benign neoplasm of transverse colon; D12.5 Benign neoplasm of sigmoid colon; K21.9 Gastro-esophageal reflux disease without esophagitis; K57.30 Diverticulosis of large intestine without perforation or abscess without bleeding; I10 Essential (primary) hypertension; E78.5 Hyperlipidemia, unspecified; G47.33 Obstructive sleep apnea (adult) (pediatric); E11.9 Type 2 diabetes mellitus without complications; N40.0 Benign prostatic hyperplasia without lower urinary tract symptoms; Z87.442 Personal history of urinary calculi; Z79.84 Long term (current) use of oral hypoglycemic drugs; Z79.82 Long term (current) use of aspirin; Z79.899 Other long term (current) drug therapy
CPT/HCPCS: 88305; 45385; 43239; J2001; J2704

== ENCOUNTER → 2024-07-13 | Outpatient (CLI) | payer MEDICARE ==
--- NOTE | 2024-07-13 15:03 | US ---
EXAMINATION TYPE: US carotid duplex BILAT DATE OF EXAM: 07/13/2024 COMPARISON: 05/27/2011 CLINICAL INDICATION: Male, 68 years old with history of I65.23 STENOSIS; Patient denies any signs or symptoms at this time; Former smoker TECHNIQUE: Grayscale, color Doppler and spectral Doppler evaluation of the bilateral carotid systems and vertebral arteries.Indirect Doppler criteria was utilized. FINDINGS: EXAM MEASUREMENTS: RIGHT: Peak Systolic Velocity (PSV) cm/sec ----- Right CCA: 64 ----- Right ICA: 76 ----- Right ECA: 119 ICA/CCA ratio: 1.2 RIGHT: End Diastole cm/sec ----- Right CCA: 17 ----- Right ICA: 24 ----- Right ECA: 24 LEFT: Peak Systolic Velocity (PSV) cm/sec ----- Left CCA: 68 ----- Left ICA: 77 ----- Left ECA: 91 ICA/CCA ratio: 1.1 LEFT: End Diastole cm/sec ----- Left CCA: 18 ----- Left ICA: 26 ----- Left ECA: 14 VERTEBRALS (direction of flow): Right Vertebral: Antegrade Left Vertebral: Antegrade Rhythm: Normal IMPORT CLERK NOTES: No intimal thickening or elevated velocities seen. Calcified plaque seen proximal right ECA Incidental - right thyroid nodules. left lateral neck lymph nodes IMPRESSION: 1. No significant hemodynamic stenosis. 2. Incidental note made of right-sided thyroid nodules with a lymph nodes in the left neck recommend follow-up thyroid ultrasound. Criteria for Assigning % of Stenosis / Diameter reduction (Estimation based on the indirect measurements of the internal carotid artery velocities (ICA PSV). 1. Normal (no stenosis)=ICA PSV < 125 cm/s: ratio < 2.0: ICA EDV<40 cm/s. 2. Less than 50% stenosis=ICA PSV < 125 cm/s: ratio < 2.0: ICA EDV<40 cm/s. 3. 50 to 69% stenosis=ICA PSV of 125 to 230 cm/s: ration 2.0 ? 4.0: ICA EDV 40-100 cm/s. 4. Greater than 70% stenosis to near occlusion= ICA PSV > 230 cm/s: ratio > 4.0: ICA EDV > 100 cm/s. 5. Near occlusion= ICA PSV velocities may be low or undetectable: variable ratio and ICA EDV. 6. Total occlusion=unable to detect flow. [facility], , 07/13/2024 3:01 PM
--- NOTE | 2024-07-13 17:00 | CA ---
Transthoracic Echo Report Name: Negrito Bah Age: 68 Gender: M : 1955 Exam Date: 07/13/2024 15:00 Exam Location: [facility] Ht (in): 72 Wt (lb): 232 Ordering Physician: Juan Chacon MD Attending/Referring Phys: [facility] Sanderson RDCS Procedure CPT: Indications: I34.0 Cardiac Hx: Technical Quality: Good Contrast 1: Total Dose (mL): Contrast 2: Total Dose (mL): MEASUREMENTS (Male / Female) Normal Values 2D ECHO LV Diastolic Diameter PLAX 4.2 cm 4.2 - 5.9 / 3.9 - 5.3 cm LV Systolic Diameter PLAX 2.9 cm IVS Diastolic Thickness 1.7 cm 0.6 - 1.0 / 0.6 - 0.9 cm LVPW Diastolic Thickness 1.5 cm 0.6 - 1.0 / 0.6 - 0.9 cm LV Relative Wall Thickness 0.7 LVOT Diameter 2.7 cm LV Diastolic Volume MOD BP 123.5 cm??? 67 - 155 / 56 - 104 cm??? LV Systolic Volume MOD BP 53.1 cm??? 22 - 58 / 19 - 49 cm??? LV Ejection Fraction MOD BP 57.0 % >= 55 % LV Cardiac Index MOD BP 2526.3 cm???/min???m??? LV Diastolic Volume MOD 4C 118.6 cm??? LV Systolic Volume MOD 4C 52.8 cm??? LV Ejection Fraction MOD 4C 55.5 % LV Cardiac Index MOD 4C 2362.2 cm???/min???m??? LV Diastolic Length 4C 8.2 cm LV Systolic Length 4C 7.5 cm LV Diastolic Volume MOD 2C 124.7 cm??? LV Systolic Volume MOD 2C 55.5 cm??? LV Ejection Fraction MOD 2C 55.5 % LV Cardiac Index MOD 2C 2485.4 cm???/min???m??? LV Diastolic Length 2C 8.4 cm LV Systolic Length 2C 7.5 cm LA Volume 54.6 cm??? 18 - 58 / 22 - 52 cm??? LA Volume Index 23.3 cm???/m??? 16 - 28 cm???/m??? Ascending Aorta Diameter 3.7 cm DOPPLER AV Peak Velocity 125.9 cm/s AV Peak Gradient 6.3 mmHg AV Mean Velocity 86.5 cm/s AV Mean Gradient 3.3 mmHg AV Velocity Time Integral 21.9 cm LVOT Peak Velocity 112.2 cm/s LVOT Peak Gradient 5.0 mmHg LVOT Velocity Time Integral 19.9 cm LVOT Stroke Volume 114.0 cm??? LVOT Stroke Volume Index 50.2 ml/m??? LVOT Cardiac Index 4090.9 cm???/min???m??? AV Area Cont Eq vti 5.2 cm??? AV Area Cont Eq pk 5.1 cm??? MV Area PHT 3.8 cm??? Mitral E Point Velocity 57.0 cm/s Mitral A Point Velocity 51.6 cm/s Mitral E to A Ratio 1.1 MV Deceleration Time 201.3 ms PV Peak Velocity 101.6 cm/s PV Peak Gradient 4.1 mmHg FINDINGS Left Ventricle Left ventricular ejection fraction is estimated at 55-60 %. Moderately increased septal wall thickness. Left ventricular cavity size normal. No obvious regional wall motion abnormalities. Right Ventricle Normal right ventricular size and function. Unable to estimate the right ventricular systolic pressure. Right Atrium Normal right atrial size. Left Atrium Normal left atrial size. Mitral Valve Structurally normal mitral valve. No evidence for mitral valve prolapse. No mitral stenosis. Trace mitral regurgitation. Aortic Valve Trileaflet aortic valve. No aortic valve stenosis or regurgitation. Tricuspid Valve Structurally normal tricuspid valve. No tricuspid stenosis. No tricuspid regurgitation. Pulmonic Valve Pulmonic valve not well visualized. No pulmonic stenosis. No pulmonic regurgitation. Pericardium No pericardial effusion. Prominent epicardial fat. Aorta Mildly enlarged sinus of valvalsa. Normal ascending aorta. CONCLUSIONS Normal LV systolic function Previewed by: Dr. Eliseo Schultz MD (Electronically Signed) Final Date: 13 July 2024 16:59
== END | disposition home or self-care (01) ==
LOC: RADUSWWP 14:17
PROVIDERS: ATTEND Internal Medicine
DX: I65.23 Occlusion and stenosis of bilateral carotid arteries (principal); I34.0 Nonrheumatic mitral (valve) insufficiency; Z87.891 Personal history of nicotine dependence
CPT/HCPCS: 93306; 93880

== ENCOUNTER → 2024-09-22 | Outpatient (CLI) | payer MEDICARE ==
--- NOTE | 2024-09-23 00:14 | US ---
EXAMINATION TYPE: US thyroid st tissue head/neck DATE OF EXAM: 09/22/2024 COMPARISON: NONE CLINICAL INDICATION: Male, 68 years old with history of E04.1 THYROID NODULE; TECHNIQUE: Grayscale and color Doppler imaging of the thyroid gland. FINDINGS: GLAND SIZE: Right Lobe: 4.3 x 2.2 x 1.6 cm Overall Parenchyma: homogeneous Left Lobe: 3.7 x 1.3 x 2.0 cm Overall Parenchyma: homogeneous Isthmus Thickness: 0.5 cm NODULES RIGHT: # of nodules measured on right: 2 1. 0.9 X 1.0 x 0.6 cm, mid mid, cyst 2. 0.5 x 0.5 x 0.4 cm, mid medial, solid or almost completely solid, hypoechoic nodule, which is wid er than tall, with smooth margins, without echogenic foci. TR 4 Prior size: No prior LEFT: # of nodules measured on left: 0 ISTHMUS: # of nodules measured in the isthmus: 0 Bilateral neck scanned, no evidence of lymphadenopathy. IMPRESSION: Moderately suspicious subcentimeter nodule right thyroid. 2017 ACR TI-RADS LEVEL: TR-RADS 4 - Moderately Suspicious: Follow if > 1 cm, FNA if > 1.5 cm *Highest TI-RADS level nodule reported [email or web address] [facility], , 09/23/2024 12:11 AM
== END | disposition home or self-care (01) ==
LOC: RADUSWWP 16:03
PROVIDERS: ATTEND Internal Medicine
DX: E04.1 Nontoxic single thyroid nodule (principal)
CPT/HCPCS: 76536

== ENCOUNTER → 2024-10-27 | Outpatient (CLI) | payer MEDICARE ==
--- NOTE | 2024-10-28 12:04 | NM ---
EXAMINATION TYPE: NM thyroid image w uptake DATE OF EXAM: 10/28/2024 COMPARISON: 09/22/2024 ultrasound CLINICAL INDICATION: Male, 68 years old with history of E04.2 NONTOXIC MULTINODULAR GOITER; TECHNIQUE: Thyroid iodine uptake is calculated and images performed after the oral administration of 290 uCi 1-123 Capsule. FINDINGS: There is normal distribution of activity throughout the gland. No suspicious persistent rm topenic defects identified. The 4 hour iodine uptake is calculated at 4.7% (normal range 8-14%). The 24-hour iodine uptake is dayanara culated at 10.8% (normal range 15-35%). These levels are low. IMPRESSION: 1. Diminished uptake within the thyroid at both 4 and 24 hours. 2. No suspicious photopenic defects are identified. [facility], , 10/28/2024 12:02 PM
== END | disposition home or self-care (01) ==
LOC: RADNMMAIN 09:34
PROVIDERS: ATTEND Internal Medicine
DX: E04.2 Nontoxic multinodular goiter (principal)
CPT/HCPCS: 78014; A9516